=== PATIENT | female | born 1990 | race Caucasian/White ===

== ENCOUNTER 2017-07-05 19:47 | Emergency (ER) | payer SELFPAY ==
[2017-07-05 19:48] VITALS: BP 147/89; PULSE 104; RESP 16; TEMP 37.1; O2SAT 98; BMI 26.8
--- NOTE | 2017-07-05 20:14 | ED.DCSUM_ITS ---
- ER Visit Summary Date of Service: 07/05/17 Chief Complaint: Abdominal pain History of Present Illness: The patient is a 27 F presenting with abdominal pain which started yesterday. She complains of right sided abdominal pain. She states on Saturday she had episodes of vomiting. This resolved on Saturday. Yesterday she began having pain on her right side and began having diarrhea today. She denies fever. No chest pain or shortness of breath. She has a history of gluten intolerance and was unsure if she ate something that caused this. She has a history of previous appendectomy. She denies possibility of . Physical Examination: Vitals are stable. Patient is afebrile. Alert no acute distress. HEENT exam is unremarkable. Neck is supple. Lungs are clear and equal bilaterally. Heart is regular rate and rhythm. Abdomen is soft right lower quadrant tenderness with no rebound or guarding. Extremities are unremarkable. Skin is warm and dry. No focal neurologic deficit. Remainder of exam is unremarkable. Emergency Department Course and Treatment: Patient is given morphine, Zofran, IV fluids. CBC shows white count 3.3. Chemistries show glucose 69. Liver lipase are normal. HCG negative. UA is unremarkable. CT abdomen pelvis shows mild small bowel ileus, mildly distended colon with air fecal levels, no bowel obstruction. On repeat evaluation patient is now resting comfortably in the emergency department. She is given mag citrate, prescription for Bentyl. She is advised to follow-up with her primary care physician. She states she will follow-up tomorrow. She is advised return to ED if she has any worsening complaints. Disposition: Discharge home Impression: Abdominal pain, mild small bowel ileus This note was generated with [employer] dictation software. It may contain incorrect words, spelling, and punctuation that were not noted in review of the chart prior to signing ED Disposition - Plan for ED Patient: Chief Complaint: Abd Pain Instructions: ED Abdominal Pain Unkn Cause Prescriptions: Dicyclomine HCl [Bentyl] 20 mg PO TIDAC #20 capsule Referrals: Connor Thompson [Primary Care Provider] -
[2017-07-05] MEDS: 0.9% Normal Saline 1,000 ML 1000 ML IV (20:18)
[2017-07-05] MEDS: Ondansetron 4 MG/2 ML Vial IV (20:19)
[2017-07-05] MEDS: Morphine 4 MG/ML Syringe IV ×2 (20:19→21:57)
[2017-07-05 20:21] LABS: Bacteria 0 SEEN /hpf (None Seen); Mucous, Urine 0 SEEN /hpf (<or=2+); Red Blood Cells-Urine 0 SEEN /hpf (0-5); White Blood Cells 0 SEEN /hpf (0-5)
[2017-07-05 20:26] LABS: Absolute Lymphocyte Count 0.78 X10^3/ul (0.83-4.51); Absolute Neutrophil Count 1.9 X10^3/uL (2.0-7.7); Basophil# 0.04 X10^3/uL; Basophil% 1.2 % (0-1); Eosinophil# 0.02 X10^3/uL; Eosinophils% 0.6 % (0-5); Hematocrit 41.8 % (37-47); Hemoglobin 14.4 g/dl (12.0-15.0); Lymphocyte # 0.78 X10^3/ul (4.0); Lymphocyte % 23.6 % (19-41); Mean Corp Hgb Conc 34.4 g/gl (32-36); Mean Corpuscular Volume 84.3 fL (81-99); Mean Platelet Vol. 8.9 fl (6.2-12.0); Monocyte# 0.55 X10^3/uL; Monocyte% 16.6 % (0-10); Neutrophil # 1.92 X10^3/uL (2.7-7.7); Platelet Count 245 K/mm3 (150-450); RBC Distribution Width CV 13.7 % (11.6-14.6); RBC Distribution Width SD 42.3 fl (35.1-43.9); Red Blood Count 4.96 M/mm3 (4.2-5.4); White Blood Count 3.3 K/mm3 (4.4-11.0)
[2017-07-05 20:27] LABS: POSITIVE COUNT NO; POSITIVE DIFFERENTIAL NO; POSITIVE MORPHOLOGY NO
[2017-07-05 20:28] LABS: Color, Urine Straw (Yellow); Glucose, Dipstick Normal (Normal); Ketone-Dipstick Negative (Negative); Leukocyte Esterase-Dipstick Negative /ul (Negative); Nitrite-Dipstick Negative (Negative); Occult Blood-Urine Negative /ul (Negative); Protein-Dipstick Negative (Negative); Urine Bilirubin Dipstick Negative (Negative); Urine Clarity Clear (Clear); Urine Urobilinogen Normal (Normal)
[2017-07-05 20:41] LABS: AST(SGOT) 31 U/L (15-37); Alanine Aminotransfer ALT/SGPT 41 U/L (13-56); Albumin, Serum 3.9 g/dL (3.2-5.0); Alkaline Phosphatase 61 U/L (45-117); Anion Gap 9 (5-15); BUN 4 mg/dL (7-18); BUN/Creat Ratio 6.9 RATIO (10-20); Bilirubin, Direct 0.08 mg/dL (0.00-0.30); Calcium,Total 8.6 mg/dL (8.5-10.1); Chloride 108 mmol/L (98-107); Creatinine, Serum 0.58 mg/dL (0.55-1.02); EST Glomerular Filtration Rate 131 mL/min (>60); Est Glom Filt Rate - Afr Amer 158 mL/min (>60); Estimated Creatinine Clearance 129.94 ml/min; Globulin 3.7 g/dL (2.2-4.2); Glucose 69 mg/dL (74-106); Lipase 152 U/L (73-393); Potassium 3.5 mmol/L (3.5-5.1); Protein, Total 7.6 g/dL (6.4-8.2); Sodium Level 140 mmol/L (136-145)
[2017-07-05 20:44] LABS: Pregnancy, Serum, hCG Quali. NEGATIVE Negative (0-9 Nonpreg)
[2017-07-05 20:45] LABS: Squamous Epithelial Cells - UA 0-5 SEEN /hpf (5-10)
--- NOTE | 2017-07-05 21:05 | CT_ITS ---
STUDY: CT ABDOMEN AND PELVIS WITH CONTRAST REASON FOR EXAM: Female, 27 years old. Right abdominal pain RADIATION DOSAGE (If Supplied By Facility): CTDIvol = ( 13.01 ) mGy, DLP = ( 785.07 ) mGycm TECHNIQUE: Transaxial images were obtained from the dome of the diaphragm to the symphysis pubis without oral contrast. 100ML ml of Isovue 300 contrast was administered. Sagittal and coronal images were reconstructed. Individualized dose optimization techniques were used for this CT. COMPARISON: July 06, 2014. FINDINGS: The visualized lung bases are unremarkable. The visualized portions of the heart are within normal limits. Normal liver. Normal gallbladder and extrahepatic biliary system. Normal spleen. Normal pancreas. Normal bilateral adrenal glands. Normal right kidney. Normal left kidney. Normal visualized stomach. Mild fluid distended small intestine. Distended colon with air-fecal levels. The appendix is not visualized. Normal abdominal aorta. Normal inferior vena cava. Normal retroperitoneum. Normal urinary bladder. Normal uterus. Possible trace pelvic fluid. Normal abdominal wall. Normal osseous structures. CT/Abdomen/Pelvis WITH Contrast IMPRESSION: Mild small bowel ileus. Mildly distended colon with air fecal levels. No bowel obstruction. Possible trace pelvic fluid. Electronically Signed: Don Bird DO at 23:34 EDT Tel [phone], Service support ,
[2017-07-05 22:00] VITALS: BP 119/69; PULSE 83; RESP 16; O2SAT 100
--- NOTE | 2017-07-05 23:47 | ED.DEP ---
ED Disposition - Plan for ED Patient: Chief Complaint: Abd Pain Instructions: ED Abdominal Pain Unkn Cause Prescriptions: Dicyclomine HCl [Bentyl] 20 mg PO TIDAC #20 capsule Referrals: Connor Thompson [Primary Care Provider] -
[2017-07-06] MEDS: Magnesium Citrate 300 ML 150 ML PO
[2017-07-06 00:08] VITALS: BP 114/71; PULSE 80; RESP 16; O2SAT 100
== END 2017-07-06 00:08 | disposition home or self-care (01) ==
PROVIDERS: Emergency Provider Emergency Medicine; Family Provider Family Medicine; PCP Family Medicine
DX: K56.7 Ileus, unspecified (principal); R10.31 Right lower quadrant pain; Z90.49 Acquired absence of other specified parts of digestive tract
CPT/HCPCS: 74177; 80048; 80076; 81001; 83690; 84703; 85025; 96361; 96374; 96375; 96376; 99284; J7030; Q9967; A4216; J2405

== ENCOUNTER → 2018-02-12 15:26 | Outpatient (CLI) | payer SELFPAY ==
[2018-02-12 16:36] LABS: Absolute Lymphocyte Count 1.96 X10^3/ul (0.83-4.51); Absolute Neutrophil Count 4.9 X10^3/uL (2.0-7.7); Basophil# 0.01 X10^3/uL; Basophil% 0.1 % (0-1); Eosinophil# 0.06 X10^3/uL; Eosinophils% 0.8 % (0-5); Hematocrit 36.1 % (37-47); Lymphocyte # 1.96 X10^3/ul (4.0); Lymphocyte % 25.4 % (19-41); Mean Corp Hgb Conc 33.2 g/gl (32-36); Mean Corpuscular Hgb 27.3 pg (27.0-32.0); Mean Corpuscular Volume 82.2 fL (81-99); Mean Platelet Vol. 9.7 fl (6.2-12.0); Monocyte# 0.75 X10^3/uL; Monocyte% 9.7 % (0-10); Neutrophil # 4.94 X10^3/uL (2.7-7.7); Neutrophil % 63.9 % (47-70); Platelet Count 289 K/mm3 (150-450); RBC Distribution Width CV 16.4 % (11.6-14.6); RBC Distribution Width SD 49.1 fl (35.1-43.9); Red Blood Count 4.39 M/mm3 (4.2-5.4); White Blood Count 7.7 K/mm3 (4.4-11.0)
[2018-02-12 16:41] LABS: POSITIVE COUNT NO; POSITIVE DIFFERENTIAL NO; POSITIVE MORPHOLOGY NO
[2018-02-12 18:08] LABS: HIV - WCH Non-Reactive (Nonreactive); Rubella IgG 60.4 IU/mL
[2018-02-12 22:27] LABS: Chlamydia Trachomatis by PCR Negative (Negative); Neisserai gonorrhoeae by PCR Negative (Negative); Probe Check PASS; Sample Adequacy Control PASS; Specimen Processing Control PASS
[2018-02-14 03:50] LABS: Rapid Plasmin Reagin (RPR) NONREACTIVE (NONREACTIVE)
[2018-02-14 10:33] LABS: HEPATITIS B SURFACE AG Negative (Negative)
[2018-02-18 14:09] LABS: HPV Reflexed? NOT INDICATED
== END ==
PROVIDERS: Family Provider Family Medicine; PCP Family Medicine; Referring Provider Obstetrics & Gynecology; Visit Provider Obstetrics & Gynecology
DX: Z34.90 Encounter for supervision of normal pregnancy, unspecified, unspecified trimester (principal); Z12.4 Encounter for screening for malignant neoplasm of cervix
CPT/HCPCS: 36415; 85025; 86592; 86703; 86762; 86850; 86900; 87086; 87088; 87340; 87491; 87591; 87624; 88175; G0145

== ENCOUNTER → 2018-06-26 10:49 | Outpatient (CLI) | payer SELFPAY ==
[2018-06-26 10:29] VITALS: BMI 28.9
[2018-06-26 11:36] LABS: Absolute Lymphocyte Count 1.71 X10^3/ul (0.83-4.51); Absolute Neutrophil Count 4.4 X10^3/uL (2.0-7.7); Basophil# 0.01 X10^3/uL; Basophil% 0.1 % (0-1); Eosinophil# 0.08 X10^3/uL; Eosinophils% 1.1 % (0-5); Hematocrit 33.3 % (37-47); Hemoglobin 11.1 g/dl (12.0-15.0); Lymphocyte # 1.71 X10^3/ul (4.0); Lymphocyte % 24.4 % (19-41); Mean Corp Hgb Conc 33.3 g/gl (32-36); Mean Corpuscular Hgb 30.3 pg (27.0-32.0); Mean Platelet Vol. 9.3 fl (6.2-12.0); Monocyte# 0.77 X10^3/uL; Neutrophil # 4.42 X10^3/uL (2.7-7.7); POSITIVE COUNT NO; POSITIVE DIFFERENTIAL NO; POSITIVE MORPHOLOGY NO; Platelet Count 265 K/mm3 (150-450); RBC Distribution Width CV 12.4 % (11.6-14.6); RBC Distribution Width SD 40.1 fl (35.1-43.9); Red Blood Count 3.66 M/mm3 (4.2-5.4)
[2018-06-26 11:43] LABS: Glucose Challenge Gest 1H 50g 87 mg/dL (70-140)
== END ==
PROVIDERS: Family Provider Family Medicine; PCP Family Medicine; Visit Provider Nurse Practitioner Women's Health
DX: Z34.90 Encounter for supervision of normal pregnancy, unspecified, unspecified trimester (principal)
CPT/HCPCS: 36415; 82950; 85025; 86850; 86900

== ENCOUNTER → 2018-08-29 17:04 | Outpatient (CLI) | payer SELFPAY ==
[2018-08-29 16:02] VITALS: BMI 31.4
== END ==
PROVIDERS: Family Provider Family Medicine; PCP Family Medicine; Referring Provider Nurse Practitioner Women's Health; Visit Provider Nurse Practitioner Women's Health
DX: Z34.03 Encounter for supervision of normal first pregnancy, third trimester (principal)
CPT/HCPCS: 87081

== ENCOUNTER → 2018-09-15 12:23 | Outpatient (CLI) | payer SELFPAY ==
[2018-09-12 12:01] VITALS: BMI 31.4
--- NOTE | 2018-09-15 12:29 | US_ITS ---
STUDY: SECOND AND THIRD TRIMESTER OBSTETRICAL ULTRASOUND - LIMITED REASON FOR EXAM: Female, 28 years old. Routine survey. LMP: December 14, 2017. PRIOR ULTRASOUND: None. TECHNIQUE: Transabdominal TECHNICAL QUALITY: Adequate. FINDINGS: There is a single intrauterine fetus. The fetus is in a cephalic presentation. There is demonstrated cardiac activity with a heart rate of 136 bpm. There is a normal amniotic fluid volume. The largest amniotic fluid pocket measures 2.9 cm. The amniotic fluid index (PALMER) is 9.7 cm. The placenta is anterior in location and is not low lying. There are Grade 2 placental changes. The cervix was not able to be measured due to the head position. BIOMETRY: BPD: 9.33 cm: 38 weeks, 0 days HC: 33.26 cm: 30 weeks, 0 days AC: 34.38 cm: 38 weeks, 2 days FL: 7.26 cm: 37 weeks, 2 days Age by LMP: 39 weeks, 2 days. DWAINE by LMP: September 20, 2018. age by current US: 38 weeks, 0 days. DWAINE by current US: September 29, 2018. Estimated weight: 3355 grams, +/- 490 grams, 38 percentile. Gender: Indeterminant US/OB Limited With Biometrics IMPRESSION: Single live intrauterine gestation with a mean gestational age of 39 weeks and 2 days. The measurements obtained today following the normal expected range. Electronically Signed: Alphonse Perez, at 9:02 EDT , Service support ,
== END ==
PROVIDERS: Family Provider Family Medicine; PCP Family Medicine; Referring Provider Nurse Practitioner Women's Health; Visit Provider Nurse Practitioner Women's Health
DX: Z34.90 Encounter for supervision of normal pregnancy, unspecified, unspecified trimester (principal)
CPT/HCPCS: 76816

== ENCOUNTER 2018-09-19 20:20 | Inpatient (IN) | payer SELFPAY ==
[2018-09-05 10:24] VITALS: BMI 31.4
[2018-09-19 10:38] VITALS: BMI 30.9
[2018-09-19] MEDS: Lactated Ringers 1,000 ML 50 ML IV (20:30)
[2018-09-19 21:06] VITALS: BMI 30.9
[2018-09-19 21:18] LABS: Absolute Lymphocyte Count 2.09 X10^3/ul (0.83-4.51); Absolute Neutrophil Count 8.3 X10^3/uL (2.0-7.7); Basophil# 0.01 X10^3/uL; Basophil% 0.1 % (0-1); Eosinophil# 0.05 X10^3/uL; Eosinophils% 0.4 % (0-5); Hematocrit 32.6 % (37-47); Hemoglobin 11.2 g/dl (12.0-15.0); Lymphocyte # 2.09 X10^3/ul (4.0); Lymphocyte % 17.6 % (19-41); Mean Corp Hgb Conc 34.4 g/gl (32-36); Mean Corpuscular Hgb 28.2 pg (27.0-32.0); Mean Corpuscular Volume 82.1 fL (81-99); Mean Platelet Vol. 10.3 fl (6.2-12.0); Monocyte# 1.34 X10^3/uL; Monocyte% 11.3 % (0-10); Neutrophil # 8.32 X10^3/uL (2.7-7.7); Neutrophil % 70.3 % (47-70); Platelet Count 328 K/mm3 (150-450); RBC Distribution Width CV 13.1 % (11.6-14.6); RBC Distribution Width SD 39.4 fl (35.1-43.9); Red Blood Count 3.97 M/mm3 (4.2-5.4); White Blood Count 11.9 K/mm3 (4.4-11.0)
[2018-09-19 21:19] LABS: POSITIVE COUNT NO; POSITIVE DIFFERENTIAL NO; POSITIVE MORPHOLOGY NO
--- NOTE | 2018-09-19 21:33 | PCM.HP.OB ---
- Problem List (1) Active labor at term Status: Acute (2) Depression affecting Status: Chronic Comment: counseling encouraged. failed zoloft, on wellbutrin. (3) Rh negative status during Status: Acute Qualifiers: Comment: Rhogam at 28 weeks, time of delivery and prn (4) Status: Acute Qualifiers: Comment: genetic, carrier, and ntd screening declined. MFM Anatomy US normal. (5) Supervision of normal Status: Acute Qualifiers: Comment: PRR DWAINE 09/20/18 girl (name iva) Lane History Date of Admission: 07/06/14 Final DWAINE: 09/20/18 Gestational age: 39 Weeks and 6 Days History of this : This is a 28 year-old, , at 39w6d weeks gestational age sent in active labor and 0 station. Patient is wanting to go minimal intervention.. She had rupture membranes spontaneously clear at home immediately prior to coming in. She has regular contractions every 2 to 3 minutes denies any significant vaginal bleeding. She feels good movement. Medical History: Medical History (Last Reviewed 09/19/18 @ 10:38 by Lili Lowery) History of depression Z86.59 Surgical History: Surgical History (Last Reviewed 09/19/18 @ 10:38 by Lili Lowery) Hx of appendectomy Z90.49 Allergies hydrocodone Allergy (Verified 09/19/18 10:38) Nausea Home Medications: Home Medications Multivitamins,Therapeutic [Multivitamin] 2 tab PO DAILY 07/06/14 L.acidoph,Paracasei, B.lactis [Probiotic] 1 ea PO DAILY 07/05/17 buPROPion SR [Wellbutrin SR (150mg tablets)] 300 mg PO DAILY 07/05/17 vitamin#30 30 mg iron-10 mg iron-folic acid 1 mg-omg3 capsule cap PO cap 02/12/18 cholecalciferol (vitamin D3) 4,000 unit capsule 4,000 unit PO DAILY 04/16/18 citalopram 20 mg tablet 10 mg PO DAILY #15 tab 04/16/18 docusate sodium 100 mg capsule 100 mg PO BID 04/16/18 guar gum 1 gram chewable tablet g PO tab 04/16/18 famotidine 20 mg tablet 20 mg PO DAILY PRN #1 tab 08/22/18 Smoking Status: Never smoker Number of Fetus(es): 1 Heart Tracin moderate variability reactive initial prolonged deceleration now resolved and now category I tracing Guy: regular History Past Pregnancies: Past Pregnancies Delivery Date Name GA/Weeks Outcome Route Weight Gender Labor Length Anesthesia Delivery Location Provider FOB Labs: Mom's Labs & Results 09/19/18 09/19/18 20:39 20:39 WBC 11.9 H RBC 3.97 L Hgb 11.2 L Hct 32.6 L MCV 82.1 MCH 28.2 MCHC 34.4 RDW 13.1 RDW Differential 39.4 Plt Count 328 MPV 10.3 Immature Gran % (Auto) 0.300 Neut % (Auto) 70.3 H Lymph % (Auto) 17.6 L [place] % (Auto) 11.3 H Eos % (Auto) 0.4 Baso % (Auto) 0.1 Absolute Neuts (auto) 8.3 H Absolute Lymphs (auto) 2.09 Total Counted Not Reportable Blood Type Pending Antibody Screen Pending Course Did the patient receive Yes care? Labs Blood Type: B RH: NEGATIVE Social History Hx Smoking No Smoking Status Never smoker Expected Delivery Method: Spontaneous Vaginal Review of Systems Constitutional: Denies: Fever, Malaise Eyes: Denies: Blurred vision, Vision Change HEENT: Denies: Head Aches, Visual Changes Cardiovascular: Denies: Chest Pain, Palpitations Respiratory: Denies: Cough, Shortness of Breath, Wheezing Gastrointestinal: Denies: Abdominal Pain, Diarrhea, Nausea, Vomiting Genitourinary: Denies: Dysuria, Hematuria Musculoskeletal: Denies: Joint Pain, Muscle pain Skin: Denies: Lesions, Rash Neurological: Denies: Blurred vision, Focal weakness, Headaches Psychiatric: Denies: Anxiety, Depression Endocrine: Denies: Heat/ Cold Intolerance Hematologic/ Lymphatic: Denies: Easy Bruising, Easy Bleeding Physical Exam General: Alert, Cooperative, No apparent distress HEENT: Atraumatic, Normocephalic. Negative for: Thyromegaly, Lymphadenopathy Cardiovascular: Regular rate Lungs: Normal air movement Abdomen: Soft, Non Tender, Gravid Neurological: Deep Tendon Reflexes 2+/4 and Symmetrical, Neuro grossly intact. 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 Negative for: Vulvar lesions Estimated gestational size: Appropriate for gestational size Presentation: Cephalic Cervix Dilation (cm): 6 Assessment/Plan All Active Problems (Last Reviewed 09/19/18 @ 10:38 by Lili Lowery) Active labor at term (Acute) Rh negative status during (Acute) (Acute) Supervision of normal (Acute) Appendicitis (Resolved) This is a 28 year-old, at 39w6d weeks gestational age presents IAL. Patient presents IAL, plan expectant management for , pitocin PRN if needed. Pain management: minimal intervention GBS negative Management of any complications: none I have reviewed the [facility] and made any clinically relevant updates.
--- NOTE | 2018-09-19 21:37 | HP.PCM_ITS ---
- Problem List (1) Active labor at term Status: Acute (2) Depression affecting Status: Chronic Comment: counseling encouraged. failed zoloft, on wellbutrin. (3) Rh negative status during Status: Acute Qualifiers: Comment: Rhogam at 28 weeks, time of delivery and prn (4) Status: Acute Qualifiers: Comment: genetic, carrier, and ntd screening declined. MFM Anatomy US normal. (5) Supervision of normal Status: Acute Qualifiers: Comment: PRR DWAINE 09/20/18 girl (name iva) Lane History Date of Admission: 07/06/14 Final DWAINE: 09/20/18 Gestational age: 39 Weeks and 6 Days History of this : This is a 28 year-old, , at 39w6d weeks gestational age sent in active labor and 0 station. Patient is wanting to go minimal intervention.. She had rupture membranes spontaneously clear at home immediately prior to coming in. She has regular contractions every 2 to 3 minutes denies any significant vaginal bleeding. She feels good movement. Medical History: Medical History (Last Reviewed 09/19/18 @ 10:38 by Lili Lowery) History of depression Z86.59 Surgical History: Surgical History (Last Reviewed 09/19/18 @ 10:38 by Lili Lowery) Hx of appendectomy Z90.49 Allergies hydrocodone Allergy (Verified 09/19/18 10:38) Nausea Home Medications: Home Medications Multivitamins,Therapeutic [Multivitamin] 2 tab PO DAILY 07/06/14 L.acidoph,Paracasei, B.lactis [Probiotic] 1 ea PO DAILY 07/05/17 buPROPion SR [Wellbutrin SR (150mg tablets)] 300 mg PO DAILY 07/05/17 vitamin#30 30 mg iron-10 mg iron-folic acid 1 mg-omg3 capsule cap PO cap 02/12/18 cholecalciferol (vitamin D3) 4,000 unit capsule 4,000 unit PO DAILY 04/16/18 citalopram 20 mg tablet 10 mg PO DAILY #15 tab 04/16/18 docusate sodium 100 mg capsule 100 mg PO BID 04/16/18 guar gum 1 gram chewable tablet g PO tab 04/16/18 famotidine 20 mg tablet 20 mg PO DAILY PRN #1 tab 08/22/18 Smoking Status: Never smoker Number of Fetus(es): 1 Heart Tracin moderate variability reactive initial prolonged deceleration now resolved and now category I tracing [place]: regular History Past Pregnancies: Past Pregnancies Delivery Date Name GA/Weeks Outcome Route Weight Gender Labor Length Anesthesia Delivery Location Provider FOB Labs: Mom's Labs & Results 09/19/18 09/19/18 20:39 20:39 WBC 11.9 H RBC 3.97 L Hgb 11.2 L Hct 32.6 L MCV 82.1 MCH 28.2 MCHC 34.4 RDW 13.1 RDW Differential 39.4 Plt Count 328 MPV 10.3 Immature Gran % (Auto) 0.300 Neut % (Auto) 70.3 H Lymph % (Auto) 17.6 L [place] % (Auto) 11.3 H Eos % (Auto) 0.4 Baso % (Auto) 0.1 Absolute Neuts (auto) 8.3 H Absolute Lymphs (auto) 2.09 Total Counted Not Reportable Blood Type Pending Antibody Screen Pending Course Did the patient receive Yes care? Labs Blood Type: B RH: NEGATIVE Social History Hx Smoking No Smoking Status Never smoker Expected Delivery Method: Spontaneous Vaginal Review of Systems Constitutional: Denies: Fever, Malaise Eyes: Denies: Blurred vision, Vision Change HEENT: Denies: Head Aches, Visual Changes Cardiovascular: Denies: Chest Pain, Palpitations Respiratory: Denies: Cough, Shortness of Breath, Wheezing Gastrointestinal: Denies: Abdominal Pain, Diarrhea, Nausea, Vomiting Genitourinary: Denies: Dysuria, Hematuria Musculoskeletal: Denies: Joint Pain, Muscle pain Skin: Denies: Lesions, Rash Neurological: Denies: Blurred vision, Focal weakness, Headaches Psychiatric: Denies: Anxiety, Depression Endocrine: Denies: Heat/ Cold Intolerance Hematologic/ Lymphatic: Denies: Easy Bruising, Easy Bleeding Physical Exam General: Alert, Cooperative, No apparent distress HEENT: Atraumatic, Normocephalic. Negative for: Thyromegaly, Lymphadenopathy Cardiovascular: Regular rate Lungs: Normal air movement Abdomen: Soft, Non Tender, Gravid Neurological: Deep Tendon Reflexes 2+/4 and Symmetrical, Neuro grossly intact. 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 Negative for: Vulvar lesions Estimated gestational size: Appropriate for gestational size Presentation: Cephalic Cervix Dilation (cm): 6 Assessment/Plan All Active Problems (Last Reviewed 09/19/18 @ 10:38 by Lili Lowery) Active labor at term (Acute) Rh negative status during (Acute) (Acute) Supervision of normal (Acute) Appendicitis (Resolved) This is a 28 year-old, at 39w6d weeks gestational age presents IAL. Patient presents IAL, plan expectant management for , pitocin PRN if needed. Pain management: minimal intervention GBS negative Management of any complications: none I have reviewed the [facility] and made any clinically relevant updates.
[2018-09-19] MEDS: Oxytocin 30 units/NS 500 ml 30 UNITS/500 ML IV.SOLN 334 UNITS IV (22:31)
--- NOTE | 2018-09-19 22:50 | PCM.OPRPT ---
Problem List (1) Active labor at term Status: Acute (2) Depression affecting Status: Chronic Comment: counseling encouraged. failed zoloft, on wellbutrin. (3) Rh negative status during Status: Acute Qualifiers: Comment: Rhogam at 28 weeks, time of delivery and prn (4) Status: Acute Qualifiers: Comment: genetic, carrier, and ntd screening declined. MFM Anatomy US normal. (5) Supervision of normal Status: Acute Qualifiers: Comment: PRR DWAINE 09/20/18 girl (name surprise) Lane Vaginal Delivery Maternal Presentation: Active Labor ial 39w6d Amniotic Membrane Rupture Type: Spontaneous at home Amniotic Fluid Description: Clear Final DWAINE: 09/20/18 Gestational age: 39 Weeks and 6 Days Date of Procedure: 09/19/18 Surgery/ Procedure Performed: Spontaneous Vaginal Delivery Type of Anesthesia: Epidural Description of Procedure: Patient delivered on hands and knees. Patient began pushing and delivered the head in the ALLYSON presentation. The head was delivered atraumatically . The anterior and posterior shoulders delivered without complication followed by the rest of the infant and the was placed on the maternal abdomen. Delayed cord clamping was employed for approximately 60 seconds. Cord was clamped and cut and gentle traction was applied to the cord and the placenta delivered spontaneously immediately following it was noted to be intact with three-vessel cord. The perineum and vagina were inspected and noted to have a bilateral labial laceration that was injected with 1% lidocaine and repaired in the usual fashion with 3-0 Vicryl repeat.. EBL was 300 cc. Patient and tolerated delivery well. Presentation: [place] Placental Delivery Description: Spontaneous Placenta Disposition: [facility] Cord Vessel Description: 3 Vessels Cord Entanglement: None Estimated Blood Loss: 300 A gender: Female Episiotomy Description: None Laceration: Vaginal Extension/lac, 1st degree Medications given after delivery: IV Pitocin Complications: None
[2018-09-19] MEDS: Oxytocin 30 units/NS 500 ml 30 UNITS/500 ML IV.SOLN 167 UNITS IV (23:01)
[2018-09-20] MEDS: Naproxen 250 MG Tablet 500 MG PO ×2 (00:56→17:29)
[2018-09-20 03:58] VITALS: BP 130/78; PULSE 99; RESP 18; TEMP 36.4
[2018-09-20 07:52] VITALS: BP 143/69; PULSE 96; RESP 14; TEMP 36.2
[2018-09-20] MEDS: Acetaminophen 500 MG Tablet 1000 MG PO ×2 (08:03→22:13)
--- NOTE | 2018-09-20 09:03 | PCM.PN.OB ---
Patient Problems: Active and Suspected Problems (Last Reviewed 09/19/18 @ 10:38 by Lili Lowery) Active labor at term (Acute) Subjective: doing well no complaints pain controlled no CP SOB N V ambulating well tolerating po lochia moderate, going well - Physical Exam General: Alert, Oriented x3 Vital Signs Temp Pulse Resp BP 97.2 F L 96 14 143/69 H 09/20/18 07:52 09/20/18 07:52 09/20/18 07:52 09/20/18 07:52 Oxygen Delivery Method Room Air Weight: 186 lb Body Mass Index (BMI) 30.9 Intake and Output for Last 24 Hours 09/18/18 09/19/18 09/20/18 23:59 23:59 23:59 Intake Total 1083 / 1083 Output Total 1000 / 1000 Balance 83 / 83 Laboratory Tests Past 24 Hrs 09/19/18 09/19/18 20:39 20:39 WBC 11.9 H RBC 3.97 L Hgb 11.2 L Hct 32.6 L MCV 82.1 MCH 28.2 MCHC 34.4 RDW 13.1 RDW Differential 39.4 Plt Count 328 MPV 10.3 Immature Gran % (Auto) 0.300 Neut % (Auto) 70.3 H Lymph % (Auto) 17.6 L [place] % (Auto) 11.3 H Eos % (Auto) 0.4 Baso % (Auto) 0.1 Absolute Neuts (auto) 8.3 H Absolute Lymphs (auto) 2.09 Total Counted Not Reportable Blood Type B NEGATIVE Antibody Screen NEGATIVE Medical Necessity - Tobacco Use Smoking Status: Never smoker Assessment/Plan All Active Problems (Last Reviewed 09/19/18 @ 10:38 by Lili Lowery) Active labor at term (Acute) Rh negative status during (Acute) (Acute) Supervision of normal (Acute) Appendicitis (Resolved) s/p PPD # 1 1. routine post delivery care 2. breast feeding- support given 3. rh negative 4. rubella immune
[2018-09-20 14:00] VITALS: BP 130/83; PULSE 87; RESP 16; TEMP 36.9
[2018-09-20 18:00] VITALS: BP 143/87; PULSE 89; RESP 18; TEMP 36.8
[2018-09-20 20:30] VITALS: BP 144/91; PULSE 94; RESP 16; TEMP 36.8
[2018-09-21 02:00] VITALS: BP 122/79; PULSE 81; RESP 16; TEMP 36.6
--- NOTE | 2018-09-21 06:15 | DCINST_ITS ---
Discharge Diet: No Restrictions Discharge Activity: Return to Normal Activity, May not drive while taking narcotic pain medications., May Shower May resume sexual activity in: 4-6 weeks Call your doctor if your incision/area has: Continuous Slow Oozing, Sudden Increased Bleeding, Increased Pain/ Swelling, Increased Redness, Foul Smelling Discharge Additional Instructions: If you experience any of the following, contact your healthcare provider. * Bleeding that soaks a pad every hour for 2 hours * Fever 100.4 or higher * Unrelieved incision or abdominal pain * Swelling, redness, discharge or bleeding from your incision or episiotomy site * Your incision begins to separate * Problems urinating (including inability to urinate or burning while urinating). * Visual changes * Severe headache * Flu-like symptoms * Pain or redness in one of both of your breasts * Pain, warmth, tenderness or swelling in your legs, especially the calf area * Frequent nausea and vomiting * Symptoms of depression or anxiety If you experience any of the following, call 911 or go to the nearest Emergency Room. * Chest pain * Problems breathing * Seizure activity * Partial or complete paralysis of a body part, slurred speech, weakness or drooping of the face, or a sudden inability to walk or hold your balance Allergies/Adverse Reactions: Allergies hydrocodone Allergy (Verified 09/19/18 10:38) Nausea Medications to take at Discharge Multivitamins,Therapeutic [Multivitamin] 2 tab PO DAILY 07/06/14 L.acidoph,Paracasei, B.lactis [Probiotic] 1 ea PO DAILY 07/05/17 buPROPion SR [Wellbutrin SR (150mg tablets)] 300 mg PO DAILY 07/05/17 vitamin#30 30 mg iron-10 mg iron-folic acid 1 mg-omg3 capsule cap PO cap 02/12/18 cholecalciferol (vitamin D3) 4,000 unit capsule 4,000 unit PO DAILY 04/16/18 docusate sodium 100 mg capsule 100 mg PO BID 04/16/18 guar gum 1 gram chewable tablet g PO tab 04/16/18 famotidine 20 mg tablet 20 mg PO DAILY PRN #1 tab 08/22/18 Please Follow Up With: Amelie Grimaldo MD - [phone] When: Call to make an appointment with your doctor in 6 weeks. If you had elevated Blood pressure or 4th degree laceration you will need to be seen in 2 weeks. Primary Care Physician: Connor Thompson [Primary Care Provider] - Test Results: Test results from this visit will be discussed in further detail at your follow- up appointment, if applicable.
--- NOTE | 2018-09-21 06:15 | PCM.PN.OB ---
Patient Problems: Active and Suspected Problems (Last Reviewed 09/19/18 @ 10:38 by Lili Lowery) Active labor at term (Acute) Subjective: doing well no complaints pain controlled no CP SOB N V ambulating well tolerating po lochia moderate, going well - Physical Exam General: Alert, Oriented x3 Vital Signs Temp Pulse Resp BP 97.8 F 81 16 122/79 H 09/21/18 02:00 09/21/18 02:00 09/21/18 02:00 09/21/18 02:00 Oxygen Delivery Method Room Air Weight: 186 lb Body Mass Index (BMI) 30.9 Intake and Output for Last 24 Hours 09/19/18 09/20/18 09/21/18 23:59 23:59 23:59 Intake Total 1083 / 1083 Output Total 1000 / 1000 Balance 83 / 83 Medical Necessity - Tobacco Use Smoking Status: Never smoker Assessment/Plan All Active Problems (Last Reviewed 09/19/18 @ 10:38 by Lili Lowery) Active labor at term (Acute) Rh negative status during (Acute) (Acute) Supervision of normal (Acute) Appendicitis (Resolved) s/p PPD # 2 1. routine post delivery care 2. breast feeding- support given 3. rh negative 4. rubella immune
[2018-09-21 09:00] VITALS: BP 125/87; PULSE 99; RESP 16; TEMP 36.4
[2018-09-21 12:40] VITALS: BP 125/87; PULSE 99; RESP 16; TEMP 36.4
== END 2018-09-21 12:40 | disposition home or self-care (01) | DRG 806 ==
PROVIDERS: Admitting Provider Obstetrics & Gynecology; Family Provider Family Medicine; PCP Family Medicine; Referring Provider Obstetrics & Gynecology; Visit Provider Obstetrics & Gynecology
DX: O76 Abnormality in fetal heart rate and rhythm complicating labor and delivery (principal); O36.0130 Maternal care for anti-D [Rh] antibodies, third trimester, not applicable or unspecified; Z37.0 Single live birth; O42.02 Full-term premature rupture of membranes, onset of labor within 24 hours of rupture; O70.0 First degree perineal laceration during delivery; O99.343 Other mental disorders complicating pregnancy, third trimester; F32.9 Major depressive disorder, single episode, unspecified; Z3A.39 39 weeks gestation of pregnancy
CPT/HCPCS: 59025; 59050; 85025; 86850; 86900; 99218; J7120; G0378

== ENCOUNTER → 2018-11-06 13:06 | Outpatient (CLI) | payer SELFPAY ==
[2018-11-06 12:00] VITALS: BMI 30.9
== END ==
PROVIDERS: Family Provider Family Medicine; PCP Family Medicine; Referring Provider Nurse Practitioner Women's Health; Visit Provider Nurse Practitioner Women's Health
DX: N76.0 Acute vaginitis (principal)
CPT/HCPCS: 87070; 87205

== ENCOUNTER → 2020-09-12 | Outpatient (CLI) | payer OTHER, SELFPAY ==
[2020-09-12 11:11] VITALS: BMI 30.9
[2020-09-15 16:27] LABS: HPV APTIMA, High Risk Negative (Negative)
== END | disposition home or self-care (01) ==
PROVIDERS: PCP Family Medicine; Referring Provider Obstetrics & Gynecology; Visit Provider Obstetrics & Gynecology
DX: Z12.4 Encounter for screening for malignant neoplasm of cervix (principal)
CPT/HCPCS: 87624; 88175; G0145

== ENCOUNTER → 2021-03-11 08:34 | Outpatient (CLI) | payer OTHER, SELFPAY ==
[2021-03-11 09:22] LABS: ALB/GLOB Ratio 1.1 RATIO (0.9-2.4); AST(SGOT) 16 U/L (15-37); Alanine Aminotransfer ALT/SGPT 28 U/L (13-56); Albumin, Serum 3.8 g/dL (3.2-5.0); Alkaline Phosphatase 64 U/L (45-117); Anion Gap 7 (5-15); BUN 14 mg/dL (7-18); BUN/Creat Ratio 15.5 RATIO (10-20); Calcium,Total 8.6 mg/dL (8.5-10.1); Chloride 109 mmol/L (98-107); Cholesterol 165 mg/dL (200); EST Glomerular Filtration Rate 77 mL/min (>60); Est Glom Filt Rate - Afr Amer 93 mL/min (>60); Globulin 3.4 g/dL (2.2-4.2); Glucose 84 mg/dL (74-106); High Density Lipoprotein 58 mg/dL; Protein, Total 7.2 g/dL (6.4-8.2); Sodium Level 139 mmol/L (136-145); Triglycerides 54 mg/dL; Very Low Density Lipoprotein 11 mg/dL (5-40)
== END ==
PROVIDERS: PCP Family Medicine; Referring Provider Family Medicine; Visit Provider Family Medicine
DX: Z00.00 Encounter for general adult medical examination without abnormal findings (principal)
CPT/HCPCS: 36415; 80053; 80061

== ENCOUNTER → 2022-08-04 | Outpatient (CLI) | payer BC, SELFPAY ==
[2022-08-04 08:14] LABS: Hematocrit 36.9 % (37-47); Hemoglobin 11.4 g/dL (12.0-15.0); Mean Corp Hgb Conc 30.9 g/dL (32-36); Mean Corpuscular Hgb 26.3 pg (27.0-32.0); Mean Platelet Vol. 9.4 fl (6.2-12.0); Platelet Count 388 K/mm3 (150-450); RBC Distribution Width CV 12.7 % (11.6-14.6); Red Blood Count 4.34 M/mm3 (4.2-5.4); White Blood Count 6.2 K/mm3 (4.4-11.0)
[2022-08-04 08:15] LABS: ALB/GLOB Ratio 0.8 RATIO (0.9-2.4); AST(SGOT) 16 U/L (15-37); Alanine Aminotransfer ALT/SGPT 25 U/L (13-56); Alkaline Phosphatase 51 U/L (45-117); Anion Gap 6 (5-15); BUN 13 mg/dL (7-18); BUN/Creat Ratio 17.9 RATIO (10-20); Calcium,Total 8.5 mg/dL (8.5-10.1); Chloride 106 mmol/L (98-107); Cholesterol 181 mg/dL (200); Creatinine, Serum 0.73 mg/dL (0.55-1.02); EST Glomerular Filtration Rate 98 mL/min (>60); Est Glom Filt Rate - Afr Amer 119 mL/min (>60); Globulin 3.7 g/dL (2.2-4.2); Glucose 88 mg/dL (74-106); High Density Lipoprotein 73 mg/dL; Potassium 4.1 mmol/L (3.5-5.1); Protein, Total 6.7 g/dL (6.4-8.2); Sodium Level 137 mmol/L (136-145); Triglycerides 98 mg/dL; Very Low Density Lipoprotein 20 mg/dL (5-40)
[2022-08-06 08:20] LABS: Vitamin D,25 Hydroxy 110.6 ng/mL
== END | disposition home or self-care (01) ==
LOC: LAB 07:19
PROVIDERS: PCP Family Medicine; Referring Provider Family Medicine; Visit Provider Family Medicine
DX: Z00.00 Encounter for general adult medical examination without abnormal findings (principal); E55.9 Vitamin D deficiency, unspecified
CPT/HCPCS: 36415; 80053; 80061; 82306; 85027

== ENCOUNTER → 2023-06-11 | Outpatient (CLI) | payer BC, SELFPAY ==
[2023-06-14 13:08] LABS: HPV APTIMA, High Risk Negative (Negative)
== END | disposition home or self-care (01) ==
LOC: LABSPEC 15:37
PROVIDERS: PCP Family Medicine; Referring Provider Obstetrics & Gynecology; Visit Provider Obstetrics & Gynecology
DX: Z12.4 Encounter for screening for malignant neoplasm of cervix (principal)
CPT/HCPCS: 87624; 88175; G0145

== ENCOUNTER → 2024-03-09 | Outpatient (CLI) | payer BC, SELFPAY ==
--- NOTE | 2024-03-09 09:10 | BI_ITS ---
MAMMOGRAPHY - BILATERAL DIAGNOSTIC REASON FOR EXAM: Female, 33 years old. Focal left breast fullness. PERTINENT HISTORY: Non-contributory. TECHNIQUE: Digital bilateral breast ara (3D mammographic acquisition) in the CC and MLO projections. 2-D mediolateral oblique (MLO) and craniocaudad (CC) views of both breasts were obtained. CAD: Full Field Digital Mammography with Computer Added Detection was performed. COMPARISON: None. Baseline examination. FINDINGS: Breast Composition: The breasts are heterogeneously dense, which may obscure small masses. There are no dominant masses or suspicious calcifications. No other significant abnormalities are identified. BI/DIAG MAMM W/CAD, BILAT IMPRESSION: Negative diagnostic mammogram. With the patient''s history of liver anterior left breast fullness, correlation with ultrasound is recommended. ASSESSMENT CATEGORY: BIRADS Category 0: Incomplete. Need additional imaging evaluation. A letter regarding these results will be sent to the patient by the facility within 30 days. Approximately 10% of breast cancers are not detected by mammography. A normal mammogram should not delay biopsy of a clinically suspicious abnormality. Electronically Signed: Alphonse Perez MD at 13:42 EST ,
--- NOTE | 2024-03-09 09:10 | US_ITS ---
STUDY: ULTRASOUND BREAST - LEFT REASON FOR EXAM: Female, 33 years old. Left breast fullness. TECHNIQUE: Axial and longitudinal images of the LEFT breast were performed with a high resolution ultrasound transducer. # OF IMAGES: 39 COMPARISON: Comparison is made with prior mammogram done earlier today. FINDINGS: LEFT Breast: The lateral half of the breast was examined with ultrasound. No sonographic abnormality is seen. US/Breast Limited Unilateral IMPRESSION: No sonographic abnormality is seen. ASSESSMENT CATEGORY: BIRADS Category 1: Negative. A letter regarding these results will be sent to the patient by the facility within 30 days. Electronically Signed: Alphonse Perez MD at 15:09 EST ,
== END | disposition home or self-care (01) ==
LOC: OPBI 09:09
PROVIDERS: PCP Family Medicine; Referring Provider Obstetrics & Gynecology; Visit Provider Obstetrics & Gynecology
DX: N64.89 Other specified disorders of breast (principal)
CPT/HCPCS: 76642; 77062; 77066; G0279